=== PATIENT | female | born 1970 | race African-American/Black ===

== ENCOUNTER 2017-04-09 23:25 | Emergency (ER) | payer BC ==
--- NOTE | 2017-04-10 09:40 | RAD ---
2 VIEWS CHEST: Date: 04/10/17 HISTORY: Cough. FINDINGS: PA and lateral views of chest obtained. Two views of the chest demonstrate areas of right paratrachea l soft tissue fullness. This may represent a right paratracheal mass. Correlation with contrast enhan rosanna CT of the chest is recommended. No evidence of effusions, pneumonia, or pneumothorax seen. IMPRESSION: Right paratracheal soft tissue fullness. Correlate with contrast enhanced CT chest. CODE T. POS: [facility]
== END 2017-04-10 03:07 | disposition home or self-care (01) ==
LOC: ERS 23:25
DX: J20.9 Acute bronchitis, unspecified (principal); J45.909 Unspecified asthma, uncomplicated; F32.9 Major depressive disorder, single episode, unspecified
CPT/HCPCS: 71020

== ENCOUNTER 2024-04-02 20:50 | Emergency (ER) | payer BC ==
[2024-04-02] MEDS ORDERED: Dexamethasone 10 MG/ML VIAL ONE (23:25)
[2024-04-02] MEDS ORDERED: Ibuprofen 800 MG TAB ONE (23:26)
== END 2024-04-03 00:05 | disposition home or self-care (01) ==
LOC: ERS 20:50
DX: J06.9 Acute upper respiratory infection, unspecified (principal)
CPT/HCPCS: 87081; 87428; 87430; 99282; J1100